=== PATIENT | female | born 1995 ===

== ENCOUNTER → 2017-11-30 17:25 | Outpatient (CLI) | payer OTHER, SELFPAY | PROVIDERS: Visit Provider Physician Assistant | DX: J02.0 Streptococcal pharyngitis (principal) | CPT/HCPCS: 87070 ==

== ENCOUNTER → 2019-05-11 11:06 | Outpatient (CLI) | payer OTHER, SELFPAY ==
[2019-05-11 12:04] LABS: Influenza A - CEPHEID Flu A NEGATIVE (NEGATIVE); Influenza B - CEPHEID Flu B NEGATIVE (NEGATIVE)
[2019-05-20 04:07] LABS: COVID19 Sendout Not Detected (Not Detected)
== END ==
PROVIDERS: Visit Provider Nurse Practitioner
DX: R05 Cough (principal)
CPT/HCPCS: 87502; 87635